=== PATIENT | male | born 1975 | race Caucasian/White ===

== ENCOUNTER 2019-12-30 04:26 | Emergency (ER) | payer MEDICARE ==
[~2019-12-30] VITALS: Ht 188 cm; Wt 83.9 kg
[~2019-12-30 04:26] MED LIST: COMPAZINE10 MG PO; CYCL10 PO; HYDACE5 PO; HYDMOR2 PO; IBUP200 PO; OXYACE5T PO; Zofran4 MG PO
[2019-12-30] MEDS ORDERED: Bactrim Ds Tab1 EACH PO (04:38)
== END 2019-12-30 05:03 | disposition home or self-care (01) ==
LOC: ER 04:26
DX: L02.414 Cutaneous abscess of left upper limb (principal); F17.210 Nicotine dependence, cigarettes, uncomplicated; Z88.5 Allergy status to narcotic agent; Z79.899 Other long term (current) drug therapy
CPT/HCPCS: 99282; A9270-GY

== ENCOUNTER 2020-02-16 15:09 | Emergency (ER) | payer MEDICARE ==
[~2020-02-16] VITALS: Ht 188 cm; Wt 83.9 kg
[~2020-02-16 15:09] MED LIST changes: +Bactrim Ds Tab1 EACH PO
[2020-02-16] MEDS ORDERED: KEFLEX500 MG PO (15:27)
== END 2020-02-16 15:40 | disposition home or self-care (01) ==
LOC: ER 15:09
DX: L03.113 Cellulitis of right upper limb (principal); Z88.5 Allergy status to narcotic agent; F17.210 Nicotine dependence, cigarettes, uncomplicated
CPT/HCPCS: 99282; A9270-GY

== ENCOUNTER 2020-11-03 18:52 | Emergency (ER) | payer MEDICARE, OTHER ==
[~2020-11-03] VITALS: Ht 188 cm; Wt 74.8 kg
[~2020-11-03 18:52] MED LIST changes: +KEFLEX500 MG PO
[2020-11-03 19:15] LABS: Source, Urine Clean Catch
[2020-11-03 19:25] LABS: Appearance, Urine Clear (Clear); Bilirubin, Urine Neg (Neg); Blood, Urine Neg (Neg); Color, Urine Yellow (P-Yellow); Glucose Qualitative, Urine Neg (Neg); Ketones, Urine Neg (Neg); Leukocyte Esterase, Urine Neg (Neg); Nitrite, Urine Neg (Neg); Protein, Urine Neg (Neg); Specific Gravity, Urine 1.015 (1.003-1.022); Urobilinogen, Urine NORM (Normal); pH, Urine 6.5 (5.0-8.0)
[2020-11-03] MEDS ORDERED: DOXY100 PO (22:16)
== END 2020-11-03 22:38 | disposition home or self-care (01) ==
LOC: ER 18:52
PROVIDERS: Physician Assistant
DX: N45.1 Epididymitis (principal); F17.200 Nicotine dependence, unspecified, uncomplicated; Z88.5 Allergy status to narcotic agent
CPT/HCPCS: 76870; 81003; 96372; 99284-25; A9270; J0696

== ENCOUNTER 2021-02-08 01:56 | Emergency (ER) | payer MEDICARE, OTHER ==
[~2021-02-08] VITALS: Ht 188 cm; Wt 74.8 kg
[~2021-02-08 01:56] MED LIST changes: +DOXY100 PO
== END 2021-02-08 03:04 | disposition home or self-care (01) ==
LOC: ER 01:56
DX: F15.10 Other stimulant abuse, uncomplicated (principal); H53.8 Other visual disturbances; F17.210 Nicotine dependence, cigarettes, uncomplicated; Z88.5 Allergy status to narcotic agent
CPT/HCPCS: 99283

== ENCOUNTER 2022-10-24 22:24 | Emergency (ER) | payer MEDICARE, OTHER ==
[~2022-10-24] VITALS: Ht 182.9 cm; Wt 88.5 kg
[2022-10-24 22:42] VITALS: BP 122/78
[2022-10-24] MEDS ORDERED: CEPH500 PO (23:29)
== END 2022-10-24 23:50 | disposition home or self-care (01) ==
LOC: ER 22:24
DX: S61.411A Laceration without foreign body of right hand, initial encounter (principal); W26.8XXA Contact with other sharp object(s), not elsewhere classified, initial encounter; Z88.5 Allergy status to narcotic agent; F17.210 Nicotine dependence, cigarettes, uncomplicated
CPT/HCPCS: 99282